=== PATIENT | female | born 1990 | race African-American/Black ===

== ENCOUNTER 2020-06-18 07:49 | Emergency (ER) | payer MEDICAID ==
[~2020-06-18] VITALS: Ht 160 cm; Wt 68.0 kg
[2020-06-18 07:55] VITALS: BP 123/72
--- NOTE | 2020-06-18 07:55 | NUR ---
Patient ambulated to bed 2 with steady/even gait.
--- NOTE | 2020-06-18 08:12 | NUR ---
29 Y/O F COMING IN FROM HOME WITH C/C COUGH X 6 DAYS. PT STATES SHE WAS TESTED FOR COVID ON 06/11/2020 AND HAS NOT RECEIVED OFFICIAL RESULTS FROM TEST. PT STATES THE COUGH IS NON-PRODUCTIVE. PT DENIES HEADACHE, FEVER/CHILLS, N/V/D, COLD-LIKE SYMPTOMS, CHEST PAIN, SHORTNESS OF BREATH. PT PLACED ON [employer]IST, LUNG SOUNDS CTA, RESPIRATIONS EVEN/UNLABORED. BED LOCKED IN LOWEST POSITION, SIDE RAILS X 1. PMH/MEDS: BRONCHITIS 2018 MEDS: DENIES NKA
--- NOTE | 2020-06-18 08:16 | NUR ---
Dr. Purcell is evaluating patient at bedside.
--- NOTE | 2020-06-18 08:30 | NUR ---
FLOR MAYORGA SAMPLE COLLECTED, WALKED TO LAB AND HANDED TO GARTH TENORIO TECH.
[2020-06-18 09:01] VITALS: BP 123/72
--- NOTE | 2020-06-18 09:02 | NUR ---
Patient discharged with v/s stable. Written and verbal after care instructions given and explained. Patient alert, oriented and verbalized understanding of instructions. Ambulatory with steady gait. All questions addressed prior to discharge. ID band removed. Patient advised to follow up with PMD. Rx of Promethazine plain 5mL q8h PRN, Tessalon Perles 200mg TID PRN cough, E-Z spacer as directed, albuterol 90mcg 2 puffs q6h, and augmentin 875mg BID with meals given. Patient educated on indication of medication including possible reaction and side effects. Opportunity to ask questions provided and answered.
== END 2020-06-18 09:02 | disposition home or self-care (01) ==
LOC: MED 07:49
DX: J20.9 Acute bronchitis, unspecified (principal); R06.2 Wheezing; Z20.828 Contact with and (suspected) exposure to other viral communicable diseases
CPT/HCPCS: 99283; U0003